=== PATIENT | female | born 1985 | race Caucasian/White ===

== ENCOUNTER 2023-07-27 20:02 | Emergency (ER) | payer MEDICAID, OTHER ==
[2023-07-27 20:09] VITALS: TEMP 98.2
[2023-07-27 20:48] LABS: Group A Strep NOT DETECTED (NEGATIVE)
[2023-07-27 21:01] LABS: INFLUENZA A NEGATIVE (NEGATIVE); INFLUENZA B NEGATIVE (NEGATIVE); RESPIRATORY SYNCTIAL VIRUS NEGATIVE (NEGATIVE); SARS-CoV-2 Xpert Express NEGATIVE (NEGATIVE)
[2023-07-27 21:41] LABS: Absolute Neutrophil Ct (ANC) 6.03 x10^3/uL (1.4-6.9); BASOPHIL % 0.1 % (0.0-0.4); Basophil (Absolute #) 0.01 x10^3/uL (0-0.4); Eosinophil % 1.9 % (0.00-5.0); Eosinophil (Absolute #) 0.15 x10^3/uL (0-0.5); Hematocrit 41.4 % (35-47); IMMATURE GRAN # 0.01 x10^3u/L (0.00-0.03); IMMATURE GRAN % 0.1 % (0.00-0.4); Lymphocyte (Absolute #) 1.24 x10^3/uL (1.0-4.6); Lymphocytes % 15.7 % (24.0-44.0); Mean Cell Volume 92.8 fL (78-100); Mean Corpuscular Hemoglobin 31.4 pg (26-32); Mean Corpuscular Hgb Concent. 33.8 g/dL (32-36); Mean Platelet Volume 10.9 fL (7.5-11.0); Monocyte (Absolute #) 0.48 x10^3/uL (0.0-1.3); Monocytes % 6.1 % (0.0-12.0); Neutrophil % 76.1 % (36.0-66.0); Platelet Count 214 x10^3/uL (150-450); Red Blood Count 4.46 x10^6/uL (4.1-5.4); Red Cell Distribution Width 11.9 % (11.5-14.0); White Blood Count 7.9 x10^3/uL (4.0-10.5)
[2023-07-27] MEDS ORDERED: Sodium Chloride 0.9% 1000 ML 1,000 ML ONE (21:46)
[2023-07-27] MEDS: Sodium Chloride 0.9% 1000 ML 1,000 ML IV STA (21:47)
[2023-07-27 21:55] LABS: ALBUMIN 4.1 g/dL (3.5-5.0); ANION GAP 11.1 MEQ/L (5-15); BILIRUBIN,TOTAL 0.6 mg/dL (0.2-1.3); Calcium 9.6 mg/dL (8.4-10.2); Creatinine 1 0.65 mg/dL (0.52-1.04); EST GLOMERULAR FILTRATION RATE 116.2 ML/MIN; Potassium 4.4 mmol/L (3.5-5.1); Total Protein 7.6 g/dL (6.3-8.2)
[2023-07-27 21:58] LABS: HCG SERUM TEST NEGATIVE (NEGATIVE)
[2023-07-27 22:06] VITALS: BP 124/78; PULSE 105; RESP 17; O2SAT 97
--- NOTE | 2023-07-27 22:49 | ERPHSYRPT ---
- History of Present Illness Time Seen by Provider: 07/27/23 20:05 Source: patient Exam Limitations: no limitations Patient Subjective Stated Complaint: fever, cough, sob, body aches, swollen lymph nodes in throat Triage Nursing Assessment: Pt ambulated into ER without diff, pt alert and oriented x4. Pt c/o fever, chills, sob, body aches, and swollen lymph nodes in throat since yesterday. Lungs clear, heart tones reg. Pt is afebrile at this time. Pt has a non-prod cough. Physician History: Patient is here with cough, cold, congestion. Has been going on since yesterday. Patient describes some systemic body aches. 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 She states that she did have recent contact with several flu patients. Patient is also type I diabetic. Has had some elevated blood sugars at home over the past 24 hours. Patient has no fever here. Patient is taking PO well. Same number of urinations and defecations. The patient has no signs of altered mental status, nuchal rigidity, signs of meningitis. The patient is up-to-date on all vaccinations. Patient did give herself a dose of insulin prior to arrival. Allergies/Adverse Reactions: cefaclor [From [facility]] Allergy (Mild, Verified 07/27/23 20:16) Hives penicillin G Allergy (Verified 07/27/23 20:16) Hives Home Medications: Diltiazem HCl [Cardizem] 120 mg PO DAILY 07/27/23 [History] Insulin Glargine,Hum.rec.anlog [Basaglar Kwikpen U-100] 40 units SQ BID 07/27/23 [History] Insulin Lispro [Admelog] 10 units SQ TIDWMEALS 07/27/23 [History] PANTOPRAZOLE 40 mg Tablet [Protonix 40MG Tablet] 1 tab PO DAILY 07/27/23 [History] Hx Tetanus, Diphtheria Vaccination/Date Given: Yes Hx Influenza Vaccination/Date Given: Yes Hx Pneumococcal Vaccination/Date Given: No Immunizations Up to Date: Yes Travel Risk - International Travel Have you traveled outside of the country in past 3 weeks: No - Emerging Infectious Disease Are you exhibiting symptoms associated with any current EIDs: Yes Symptoms: Cough: New Onset, Fever, Headaches/Body Aches/, Shortness of Breath - Past Medical History Pertinent Past Medical History: Yes Neurological History: No Pertinent History ENT History: No Pertinent History Cardiac History: No Pertinent History Respiratory History: No Pertinent History Endocrine Medical History: Diabetes Type I Musculoskeletal History: Fractures, Other GI Medical History: Gallbladder Disease History: No Pertinent History Psycho-Social History: Anxiety, Depression Female Reproductive Disorders: No Pertinent History Other Medical History: RECURRING CELLULITIS IN LEFT INDEX FINGER FOR PAST 6YRS, scleroderma - Past Surgical History Past Surgical History: Yes Neuro Surgical History: No Pertinent History Cardiac: No Pertinent History Respiratory: No Pertinent History Gastrointestinal: Appendectomy, Cholecystectomy Genitourinary: No Pertinent History Musculoskeletal: No Pertinent History Female Surgical History: Section Other Surgical History: LEAP PROCEDURE ON CERVIX. TONSILS ET ADENOIDS - Female History Hx Last Menstrual Period: 01/2023 Hx Now: No - Social History Smoking Status: Current every day smoker How long have you smoked: 19 yrs Exposure to second hand smoke: No Drug Use: none Patient Lives Alone: No - Nursing Vital Signs Nursing Vital Signs: Initial Vital Signs Temperature 98.2 F 07/27/23 20:06 Pulse Rate 126 H 07/27/23 20:06 Respiratory Rate 16 07/27/23 20:06 Blood Pressure 158/94 07/27/23 20:06 O2 Sat by Pulse Oximetry 98 07/27/23 20:06 Pain Scale Pain Intensity 3 - Physical Exam SpO2: 97 Comments: 07/27/23 23:00 Review of Systems Constitutional: Fever at home, body aches HENT: Cough, cold, congestion Respiratory: Negative for shortness of breath. Cardiovascular: Negative for chest pain. Gastrointestinal: Negative for abdominal pain. Genitourinary: Negative for dysuria. Musculoskeletal: Negative for back pain. Skin: Negative for rash. Neurological: Negative for headaches. Psychiatric/Behavioral: Negative for behavioral problems. All other systems reviewed and are negative. Physical Exam Vitals signs and nursing note reviewed. Constitutional: Appearance: Patient is well-developed. HENT: Head: Normocephalic and atraumatic. Eyes: Conjunctiva/sclera: Conjunctivae normal. Neck: Musculoskeletal: Normal range of motion. Trachea: No tracheal deviation. Cardiovascular: Rate and Rhythm: Tachycardia Pulmonary: Effort: Pulmonary effort is normal. No respiratory distress. Abdominal: Palpations: Abdomen is soft. Musculoskeletal: General: No deformity. Skin: General: Skin is warm and dry. Neurological/ Psychiatric: Mental Status: Mental status, behavior, interaction with environment is appropriate for patient's age and condition No trismus, able to fully extend neck, normal range of motion of neck without pain. Uvula is midline, no swelling of the mouth, noraml oropharynx. No exudate, no signs of meningitis, no floor of mouth swelling, no hot potato voice on exa m. No buccal swelling, no gum bleeding, no signs of tooth abscess/infection. Some minimal cervical lymphadenopathy. Less than 1 cm, mobile, minimally tender. - Course Nursing assessment & vital signs reviewed: Yes Ordered Tests: Active Orders 24 hr Category Date Time Status IV Insertion STAT Care 07/27/23 21:17 Completed POCT Glucose Check STAT Care 07/27/23 20:11 Completed CHEST 1 VIEW (PORTABLE) Stat Exams 07/27/23 21:17 Ordered AMYLASE Stat Lab 07/27/23 21:25 Completed BLOOD CULTURE Stat Lab 07/27/23 21:25 Received BLOOD CULTURE Stat Lab 07/27/23 21:30 Received CBC W DIFF Stat Lab 07/27/23 21:25 Completed CMP Stat Lab 07/27/23 21:25 Completed HCG QUALITATIVE, SERUM Stat Lab 07/27/23 21:25 Completed LIPASE Stat Lab 07/27/23 21:25 Completed Lactic Acid Stat Lab 07/27/23 21:40 Completed POCT GLUCOSE Stat Lab 07/27/23 21:13 Completed PROCALCITONIN Stat Lab 07/27/23 21:25 Completed TROPONIN Q4H Lab 07/27/23 21:25 Completed Medication Summary Discontinued Medications Generic Name Dose Route Start Last Admin Trade Name Grisel PRN Reason Stop Dose Admin Sodium Chloride 1,000 mls @ 999 mls/hr 07/27/23 21:17 07/27/23 22:48 Sodium Chloride 0.9% 1000 Ml IV 07/27/23 22:17 Infused .Q1H1M STA Infusion Sodium Chloride Confirm 07/27/23 21:46 Sodium Chloride 0.9% 1000 Ml Administered 07/27/23 21:47 Dose 1,000 mls @ ud .ROUTE .STK-MED ONE Lab/Rad Data: Laboratory Result Diagrams 07/27/23 21:25 07/27/23 21:25 Laboratory Results 07/27/23 07/27/23 07/27/23 Range/Units 21:40 21:25 21:25 WBC (4.0-10.5) x10^3/uL RBC (4.1-5.4) x10^6/uL Hgb (12.0-16.0) g/dL Hct (35-47) % MCV (78-100) fL MCH (26-32) pg MCHC (32-36) g/dL RDW (11.5-14.0) % Plt Count (150-450) x10^3/uL MPV (7.5-11.0) fL Gran % (36.0-66.0) % Immature Gran % (Auto) (0.00-0.4) % Nucleat RBC Rel Count (0.00-0.1) % Eos # (Auto) (0-0.5) x10^3/uL Immature Gran # (Auto) (0.00-0.03) x10^3u/L Absolute Lymphs (auto) (1.0-4.6) x10^3/uL Absolute Monos (auto) (0.0-1.3) x10^3/uL Absolute Nucleated RBC (0.00-0.01) x10^3u/L Lymphocytes % (24.0-44.0) % Monocytes % (0.0-12.0) % Eosinophils % (0.00-5.0) % Basophils % (0.0-0.4) % Absolute Granulocytes (1.4-6.9) x10^3/uL Basophils # (0-0.4) x10^3/uL Sodium (135-145) mmol/L Potassium (3.5-5.1) mmol/L Chloride (98-107) mmol/L Carbon Dioxide (22-30) mmol/L Anion Gap (5-15) MEQ/L BUN (7-17) mg/dL Creatinine (0.52-1.04) mg/dL Estimated GFR ML/MIN Glucose (74-106) mg/dL POC Glucometer (74 to 106) mg/dL Lactic Acid 1.7 (0.4-2.0) Calcium (8.4-10.2) mg/dL Total Bilirubin (0.2-1.3) mg/dL AST (14-36) U/L ALT (0-35) U/L Alkaline Phosphatase (38-126) U/L Troponin I (0.000-0.033) ng/mL Serum Total Protein (6.3-8.2) g/dL Albumin (3.5-5.0) g/dL Amylase (30-110) U/L Lipase (23-300) U/L Procalcitonin 0.303 H (0.030-0.080) ng/mL Serum HCG, Qual NEGATIVE (NEGATIVE) Influenza Type A Ag (NEGATIVE) Influenza Type B Ag (NEGATIVE) RSV (PCR) (NEGATIVE) SARS-CoV-2 (PCR) (NEGATIVE) Group A Strep Antibody (NEGATIVE) 07/27/23 07/27/23 07/27/23 Range/Units 21:25 21:25 21:25 WBC 7.9 (4.0-10.5) x10^3/uL RBC 4.46 (4.1-5.4) x10^6/uL Hgb 14.0 (12.0-16.0) g/dL Hct 41.4 (35-47) % MCV 92.8 (78-100) fL MCH 31.4 (26-32) pg MCHC 33.8 (32-36) g/dL RDW 11.9 (11.5-14.0) % Plt Count 214 (150-450) x10^3/uL MPV 10.9 (7.5-11.0) fL Gran % 76.1 H (36.0-66.0) % Immature Gran % (Auto) 0.1 (0.00-0.4) % Nucleat RBC Rel Count 0.0 (0.00-0.1) % Eos # (Auto) 0.15 (0-0.5) x10^3/uL Immature Gran # (Auto) 0.01 (0.00-0.03) x10^3u/L Absolute Lymphs (auto) 1.24 (1.0-4.6) x10^3/uL Absolute Monos (auto) 0.48 (0.0-1.3) x10^3/uL Absolute Nucleated RBC 0.00 (0.00-0.01) x10^3u/L Lymphocytes % 15.7 L (24.0-44.0) % Monocytes % 6.1 (0.0-12.0) % Eosinophils % 1.9 (0.00-5.0) % Basophils % 0.1 (0.0-0.4) % Absolute Granulocytes 6.03 (1.4-6.9) x10^3/uL Basophils # 0.01 (0-0.4) x10^3/uL Sodium 134 L (135-145) mmol/L Potassium 4.4 (3.5-5.1) mmol/L Chloride 101 (98-107) mmol/L Carbon Dioxide 25 (22-30) mmol/L Anion Gap 11.1 (5-15) MEQ/L BUN 13 (7-17) mg/dL Creatinine 0.65 (0.52-1.04) mg/dL Estimated GFR 116.2 ML/MIN Glucose 380 H (74-106) mg/dL POC Glucometer (74 to 106) mg/dL Lactic Acid (0.4-2.0) Calcium 9.6 (8.4-10.2) mg/dL Total Bilirubin 0.60 (0.2-1.3) mg/dL AST 20 (14-36) U/L ALT 22 (0-35) U/L Alkaline Phosphatase 81 (38-126) U/L Troponin I < 0.012 (0.000-0.033) ng/mL Serum Total Protein 7.6 (6.3-8.2) g/dL Albumin 4.1 (3.5-5.0) g/dL Amylase 52 (30-110) U/L Lipase 37 (23-300) U/L Procalcitonin (0.030-0.080) ng/mL Serum HCG, Qual (NEGATIVE) Influenza Type A Ag (NEGATIVE) Influenza Type B Ag (NEGATIVE) RSV (PCR) (NEGATIVE) SARS-CoV-2 (PCR) (NEGATIVE) Group A Strep Antibody (NEGATIVE) 07/27/23 07/27/23 Range/Units 21:13 20:20 WBC (4.0-10.5) x10^3/uL RBC (4.1-5.4) x10^6/uL Hgb (12.0-16.0) g/dL Hct (35-47) % MCV (78-100) fL MCH (26-32) pg MCHC (32-36) g/dL RDW (11.5-14.0) % Plt Count (150-450) x10^3/uL MPV (7.5-11.0) fL Gran % (36.0-66.0) % Immature Gran % (Auto) (0.00-0.4) % Nucleat RBC Rel Count (0.00-0.1) % Eos # (Auto) (0-0.5) x10^3/uL Immature Gran # (Auto) (0.00-0.03) x10^3u/L Absolute Lymphs (auto) (1.0-4.6) x10^3/uL Absolute Monos (auto) (0.0-1.3) x10^3/uL Absolute Nucleated RBC (0.00-0.01) x10^3u/L Lymphocytes % (24.0-44.0) % Monocytes % (0.0-12.0) % Eosinophils % (0.00-5.0) % Basophils % (0.0-0.4) % Absolute Granulocytes (1.4-6.9) x10^3/uL Basophils # (0-0.4) x10^3/uL Sodium (135-145) mmol/L Potassium (3.5-5.1) mmol/L Chloride (98-107) mmol/L Carbon Dioxide (22-30) mmol/L Anion Gap (5-15) MEQ/L BUN (7-17) mg/dL Creatinine (0.52-1.04) mg/dL Estimated GFR ML/MIN Glucose (74-106) mg/dL POC Glucometer 358 H (74 to 106) mg/dL Lactic Acid (0.4-2.0) Calcium (8.4-10.2) mg/dL Total Bilirubin (0.2-1.3) mg/dL AST (14-36) U/L ALT (0-35) U/L Alkaline Phosphatase (38-126) U/L Troponin I (0.000-0.033) ng/mL Serum Total Protein (6.3-8.2) g/dL Albumin (3.5-5.0) g/dL Amylase (30-110) U/L Lipase (23-300) U/L Procalcitonin (0.030-0.080) ng/mL Serum HCG, Qual (NEGATIVE) Influenza Type A Ag NEGATIVE (NEGATIVE) Influenza Type B Ag NEGATIVE (NEGATIVE) RSV (PCR) NEGATIVE (NEGATIVE) SARS-CoV-2 (PCR) NEGATIVE (NEGATIVE) Group A Strep Antibody NOT DETECTED (NEGATIVE) - Progress Progress: improved Progress Note: Differential diagnosis includes viral illness, DKA, pneumonia, hyperglycemia, COVID, flu, RSV, strep throat. We did place an IV and the patient, basic labs, fluids given her elevated [id number] blood sugar, chest x-ray, screen. 07/27/23 23:09 Patient's heart rate did improve with fluids. Patient's CMP does not show an obvious DKA. No anion gap, normal potassium. CBC shows no leukocytosis. Patient has no elevated lactic acid. Therefore much less likely to be a severe infection. Blood cultures drawn. Will allow these to grow out. Procalcitonin is also slightly elevated. This could be due to patient's hyperglycemia, overall stress state. Fluids given. Patient taking p.o. without difficulty. States that she will go home and take insulin. She did not want any insulin here. I feel this is reasonable given her overall picture. Patient's troponin is negative. Given that has been going on greater than 24 hours I do feel comfortable with a one-time negative troponin. Patient's COVID, flu, RSV all returned negative. Chest x-ray shows no obvious lung sounds are clear. Therefore will not place patient on any oral antibiotics at this point in time. At this point in time, plan to discharge patient home. She will be given the day off tomorrow and should use it to see her PCP for close reevaluation. She may return here at any point in time for new or changing symptoms. Close follow-up with PCP. I did discuss all this with the patient, she states her understanding and will follow-up. 07/27/23 23:09 Counseled pt/family regarding: lab results, diagnosis, need for follow-up, rad results - Departure Departure Disposition: Home Clinical Impression: Viral illness, Hyperglycemia due to diabetes mellitus Condition: Stable Critical Care Time: No Referrals: LEXI NOLAN [Primary Care Provider] - Follow up/PCP as directed Instructions: Fever, Adult (DC)
--- NOTE | 2023-07-28 08:49 | XRAY ---
Indication: Pneumonia. Comparison: None Portable chest hyperinflated and clear. Heart and mediastinal structures within normal limits. Bony thorax intact with incidental minimal dextroscoliosis and punctate foreign body projecting over T2-T3. Impression: Nonacute hyperinflated chest.
== END 2023-07-27 22:59 | disposition home or self-care (01) ==
LOC: ED 20:02
DX: B34.9 Viral infection, unspecified (principal); E10.65 Type 1 diabetes mellitus with hyperglycemia; R05.1 Acute cough; M79.10 Myalgia, unspecified site; Z79.899 Other long term (current) drug therapy; Z72.0 Tobacco use
CPT/HCPCS: 0241U; 36000; 36415; 71045; 80053; 82150; 82947; 83605; 83690; 84145; 84484; 84703; 85025; 87040; 87651; 96360; 99284

== ENCOUNTER 2025-01-04 18:50 | Emergency (ER) | payer MEDICAID ==
[2025-01-04 19:12] VITALS: TEMP 98.5
[2025-01-04 20:11] VITALS: RESP 18
--- NOTE | 2025-01-04 20:34 | ERPHSYRPT ---
- History of Present Illness Time Seen by Provider: 01/04/25 20:29 Source: patient Exam Limitations: no limitations Patient Subjective Stated Complaint: "I've been having pain in the mouth for the past 3 days and it's going into my ear. It hurts so bad. I can't eat or anything". Triage Nursing Assessment: Pt presents to ER with complaints of mouth pain for 3 days. Pt states pain radiates to right ear. Pt is alert and oriented x 3. Skin is pink, warm, and dry. Respirations are unlabored. Pt appears in pain and anxious. Noted some dental decay. No drainage noted. Tenderness upon exam. Pt states she has attempted to use OTC meds without relief. Physician History: Patient is a 39-year-old female current smoker history of diabetes type 1 anxiety and depression presents to our ED for evaluation of progressive sublingual lower jaw pain. Patient states that symptoms have got progressively worse over the past 3 months. No trauma no fever. Patient states that is very difficult to open her mouth but she is tolerating her oral secretions well. No change in her voice. Patient has multiple carious teeth. Symptoms are moderate in intensity. Pain worse with palpation to the sublingual and submental area. Patient otherwise feels well. No chest pain or shortness of breath. No nausea vomiting or diaphoresis. Patient voices no other complaints or concerns at this time. Portions of this note were created with voice recognition technology. There may be grammatical, spelling, punctuation or sound alike errors Timing/Duration: day(s) (3 days) Severity: moderate Modifying Factors: Improves With: nothing Associated Symptoms: denies symptoms Allergies/Adverse Reactions: cefaclor [From Ceclor] Allergy (Mild, Verified 01/04/25 19:08) Hives penicillin G Allergy (Verified 01/04/25 19:08) Hives Home Medications: Insulin Glargine,Hum.rec.anlog [Basaglar Kwikpen U-100] 40 units SQ BID 07/27/23 [History] Insulin Lispro [Admelog] 10 units SQ TIDWMEALS 07/27/23 [History] dilTIAZem HCL [Cardizem] 120 mg PO DAILY 07/27/23 [History] Hx Tetanus, Diphtheria Vaccination/Date Given: Yes Hx Influenza Vaccination/Date Given: Yes Hx Pneumococcal Vaccination/Date Given: No Immunizations Up to Date: Yes Travel Risk - International Travel Have you traveled outside of the country in past 3 weeks: No - Emerging Infectious Disease Are you exhibiting symptoms associated with any current EIDs: No Symptoms: Cough: New Onset, Fever, Headaches/Body Aches/, Shortness of Breath - Review of Systems All Other Systems: Reviewed and Negative - Past Medical History Pertinent Past Medical History: Yes Neurological History: No Pertinent History ENT History: No Pertinent History Cardiac History: No Pertinent History Respiratory History: No Pertinent History Endocrine Medical History: Diabetes Type I Musculoskeletal History: Fractures, Other GI Medical History: Gallbladder Disease History: No Pertinent History Psycho-Social History: Anxiety, Depression Female Reproductive Disorders: No Pertinent History Other Medical History: RECURRING CELLULITIS IN LEFT INDEX FINGER FOR PAST 6YRS, scleroderma - Past Surgical History Past Surgical History: Yes Neuro Surgical History: No Pertinent History Cardiac: No Pertinent History Respiratory: No Pertinent History Gastrointestinal: Appendectomy, Cholecystectomy Genitourinary: No Pertinent History Musculoskeletal: No Pertinent History Female Surgical History: Section Other Surgical History: LEAP PROCEDURE ON CERVIX - Female History Hx Last Menstrual Period: 12/13/2024 Hx Now: No - Social History Smoking Status: Current every day smoker How long have you smoked: 19 yrs Exposure to second hand smoke: No Drug Use: none - Social Determinants of Health Will the patient participate in the screening: Yes Do you worry about a steady place to live?: No Do you have any problems with any of the following?: No known problems In the past 12 months,have you had to go without utilities?: No Transportation Issues: No Has anyone in your support network made you feel unsafe?: No Have you or anyone in your house had to go w/o enough food: No - Nursing Vital Signs Nursing Vital Signs: Initial Vital Signs Temperature 98.5 F 01/04/25 19:09 Pulse Rate 108 H 01/04/25 19:09 Respiratory Rate 20 01/04/25 19:09 Blood Pressure 160/93 01/04/25 19:09 O2 Sat by Pulse Oximetry 99 01/04/25 19:09 Pain Scale Pain Intensity 7 - Physical Exam General Appearance: no apparent distress, alert Eye Exam: PERRL/EOMI, eyes nml inspection Ears, Nose, Throat Exam: normal ENT inspection, moist mucous membranes, other (Poor dentition. Inflamed gingiva/gingivitis. Palpation reproduces pain.) Neck Exam: normal inspection, full range of motion Respiratory Exam: normal breath sounds, lungs clear, No respiratory distress Cardiovascular Exam: regular rate/rhythm, normal heart sounds, normal peripheral pulses Gastrointestinal/Abdomen Exam: soft, normal bowel sounds, No tenderness, No mass Back Exam: normal inspection, normal range of motion, No CVA tenderness, No vertebral tenderness Extremity Exam: normal inspection, normal range of motion, pelvis stable Neurologic Exam: alert, oriented x 3, cooperative, normal mood/affect, sensation nml, No motor deficits Skin Exam: normal color, warm, dry, No rash Lymphatic Exam: No adenopathy SpO2 Interpretation: normal SpO2: 99 O2 Delivery: Room Air - Course Nursing assessment & vital signs reviewed: Yes Ordered Tests: Active Orders 24 hr Category Date Time Status IV Insertion STAT Care 01/04/25 20:24 Active NECK WITH CONTRAST [CT] Stat Exams 01/04/25 20:26 Completed CBC W DIFF Stat Lab 01/04/25 20:40 Completed CMP Stat Lab 01/04/25 20:40 Completed Medication Summary Generic Name Dose Route Start Last Admin Trade Name Freq PRN Reason Stop Dose Admin Sodium Chloride 1,000 mls @ 100 mls/hr 01/04/25 20:30 01/04/25 20:42 Sodium Chloride 0.9% 1000 Ml IV 02/03/25 20:29 100 mls/hr .Q10H MARY Administration Discontinued Medications Generic Name Dose Route Start Last Admin Trade Name Freq PRN Reason Stop Dose Admin Ketorolac Tromethamine Confirm 01/04/25 21:31 Ketorolac Tromethamine 30 Mg/Ml Inj Administered 01/04/25 21:32 Dose 30 mg .ROUTE .STK-MED ONE Ketorolac Tromethamine 30 mg 01/04/25 21:37 01/04/25 21:37 Ketorolac Tromethamine 30 Mg/Ml Inj IV 01/04/25 21:38 30 mg STAT STA Administration Morphine Sulfate 4 mg 01/04/25 20:24 01/04/25 20:41 Morphine Sulfate 4 Mg/Ml Injection IV 01/04/25 20:25 4 mg STAT ONE Administration Morphine Sulfate Confirm 01/04/25 20:39 Morphine Sulfate 4 Mg/Ml Injection Administered 01/04/25 20:40 Dose 4 mg .ROUTE .STK-MED ONE Ondansetron HCl 4 mg 01/04/25 20:24 01/04/25 20:44 Ondansetron Hcl 4 Mg/2 Ml Vial IV 01/04/25 20:25 4 mg STAT ONE Administration Ondansetron HCl Confirm 01/04/25 20:38 Ondansetron Hcl 4 Mg/2 Ml Vial Administered 01/04/25 20:39 Dose 4 mg .ROUTE .STK-MED ONE Lab/Rad Data: Laboratory Result Diagrams 01/04/25 20:40 01/04/25 20:40 Laboratory Results 01/04/25 01/04/25 Range/Units 20:40 20:40 WBC 12.8 H (3.98-10.04) x10^3/uL RBC 4.00 (3.93-5.22) x10^6/uL Hgb 13.3 (11.2-15.7) g/dL Hct 39.4 (34.1-44.9) % MCV 98.5 H (79.4-94.8) fL MCH 33.3 H (25.6-32.2) pg MCHC 33.8 (32.2-35.5) g/dL RDW 11.9 (11.7-14.4) % Plt Count 212 (182-369) x10^3/uL MPV 10.6 (9.4-12.3) fL Gran % 81.7 H (34.0-71.1) % Immature Gran % (Auto) 0.4 (0.001-0.429) % Nucleat RBC Rel Count 0.0 (0.00-0.2) % Eos # (Auto) 0.07 (0.04-0.36) x10^3/uL Immature Gran # (Auto) 0.05 H (0.001-0.031) x10^3u/L Absolute Lymphs (auto) 1.49 (1.18-3.74) x10^3/uL Absolute Monos (auto) 0.72 (0.24-0.86) x10^3/uL Absolute Nucleated RBC 0.00 (0.00-0.012) x10^3u/L Lymphocytes % 11.6 L (19.3-51.7) % Monocytes % 5.6 (4.7-12.5) % Eosinophils % 0.5 L (0.7-5.8) % Basophils % 0.2 (0.1-1.2) % Absolute Granulocytes 10.48 H (1.56-6.13) x10^3/uL Basophils # 0.02 (0.01-0.08) x10^3/uL Sodium 133 L (135-145) mmol/L Potassium 4.5 (3.5-5.1) mmol/L Chloride 102 (98-107) mmol/L Carbon Dioxide 24 (22-30) mmol/L Anion Gap 11.1 (5-15) MEQ/L BUN 11 (7-17) mg/dL Creatinine 0.56 (0.52-1.04) mg/dL Estimated GFR 119.0 ML/MIN Glucose 352 H (74-106) mg/dL Calcium 9.0 (8.4-10.2) mg/dL Total Bilirubin 0.50 (0.2-1.3) mg/dL AST 23 (14-36) U/L ALT 29 (0-35) U/L Alkaline Phosphatase 103 (38-126) U/L Serum Total Protein 7.1 (6.3-8.2) g/dL Albumin 4.2 (3.5-5.0) g/dL - Progress Progress: improved Progress Note: Patient is a 39-year-old female current smoker history of diabetes type 1 anxiety and depression presents to our ED for evaluation of progressive sublingual lower jaw pain. Physical exam reveals poor dentition gingivitis and sublingual tenderness. CT neck negative for Bala's angina. Laboratory workup reveals a leukocytosis and a hyperglycemia. IV fluids administered. Patient reassessed. Pain significantly improved. Patient is requesting discharge. Patient received an oral dose of clindamycin in our ED. A prescription for clindamycin and Toradol forwarded to patient's pharmacy. No indication for further workup at this time will discharge home. Patient agrees to follow-up with her primary care doctor within 48 hours for reevaluation. Portions of this note were created with voice recognition technology. There may be grammatical, spelling, punctuation or sound alike errors History obtained from patient. Differential diagnosis includes gingivitis, dental abscess, Bala's angina, ANUG Complexity of problem addressed is moderate acute complicated. No critical care time. Complexity of data reviewed and analyzed is moderate. Test ordered chest reviewed results analyzed and correlated clinically with history and physical exam. Risk of complication at risk of morbidity/mortality of patient management is moderate. A prescription for clindamycin and Toradol forwarded to patient's pharmacy. Vital stable. Time spent to discharge patient is approximately 15 minutes. Plan of care established for shared decision making. No social determinants of health present to impede follow-up. Portions of this note were created with voice recognition technology. There may be grammatical, spelling, punctuation or sound alike errors 01/04/25 23:50 01/04/25 23:52 Counseled pt/family regarding: lab results, diagnosis, need for follow-up, rad results - Departure Departure Disposition: Home Clinical Impression: Pain, dental, Carious teeth, Gingivitis Condition: Stable Critical Care Time: No Referrals: LEXI NOLAN [Primary Care Provider, [facility]] - Follow up/PCP as directed Additional Instructions: Discharge/Care Plan JAVI LAWSON was seen on 01/04/25 in the Emergency Room. The patient was counseled regarding Diagnosis,Lab results, Imaging studies, need for follow up and when to return to the Emergency Room. Prescriptions given: Discharge Note I have spoken with the patient and/or caregivers. I have explained the patient's condition, diagnosis and treatment plan based on the information available to me at this time. I have answered the patient's and/or caregiver's questions and addressed any concerns. The patient and/or caregivers have as good understanding of the patient's diagnosis, condition and treatment plan as can be expected at this point. The vital signs have been stable. The patient's condition is stable and appropriate for discharge from the emergency department. The patient will pursue further outpatient evaluation with the primary care physician or other designated or consulting physician as outlined in the discharge instructions. The patient and/or caregivers are agreeable to this plan of care and follow-up instructions have been explained in detail. The patient and/or caregivers have received these instruction. The patient/and or caregivers are aware that any significant change in condition or worsening of symptoms should prompt an immediate return to this or the closest emergency department or call 911. Prescriptions: Clindamycin HCl 150 mg [Cleocin 150 mg Capsule] 2 cap PO QID #56 cap Ketorolac Trometh 10 mg Tab [TORAdol 10 MG TABLET] 10 mg PO TID 5 Days #15 tablet
[2025-01-04] MEDS ORDERED: Zofran 4 MG/2 ML VIAL ONE (20:38)
[2025-01-04] MEDS ORDERED: MORPHINE SULFATE 4 MG INJ ONE (20:39)
[2025-01-04] MEDS: MORPHINE SULFATE 4 MG INJ IV ONE (20:41)
[2025-01-04 20:44] LABS: BASOPHIL % 0.2 % (0.1-1.2); Basophil (Absolute #) 0.02 x10^3/uL (0.01-0.08); Eosinophil (Absolute #) 0.07 x10^3/uL (0.04-0.36); Hematocrit 39.4 % (34.1-44.9); Hemoglobin 13.3 g/dL (11.2-15.7); IMMATURE GRAN # 0.05 x10^3u/L (0.001-0.031); IMMATURE GRAN % 0.4 % (0.001-0.429); Lymphocyte (Absolute #) 1.49 x10^3/uL (1.18-3.74); Mean Corpuscular Hemoglobin 33.3 pg (25.6-32.2); Mean Corpuscular Hgb Concent. 33.8 g/dL (32.2-35.5); Monocyte (Absolute #) 0.72 x10^3/uL (0.24-0.86); NUCLEATED RBC # 0.00 x10^3u/L (0.00-0.012); NUCLEATED RBC % 0.0 % (0.00-0.2); Platelet Count 212 x10^3/uL (182-369); Red Blood Count 4.00 x10^6/uL (3.93-5.22); White Blood Count 12.8 x10^3/uL (3.98-10.04)
[2025-01-04] MEDS: Zofran 4 MG/2 ML VIAL IV ONE (20:44)
[2025-01-04 20:58] LABS: Calcium 9.0 mg/dL (8.4-10.2); Carbon Dioxide 24.0 mmol/L (22-30); Creatinine 1 0.56 mg/dL (0.52-1.04); EST GLOMERULAR FILTRATION RATE 119.0 ML/MIN; Glucose 352.0 mg/dL (74-106); Potassium 4.5 mmol/L (3.5-5.1); SGOT/AST 23.0 U/L (14-36); SGPT/ALT 29.0 U/L (0-35); Total Protein 7.1 g/dL (6.3-8.2)
[2025-01-04] MEDS ORDERED: TORAdol 30 mg Injection ONE (21:31)
[2025-01-04] MEDS: TORAdol 30 mg Injection IV STA (21:37)
--- NOTE | 2025-01-04 22:52 | XRAY ---
CLINICAL HISTORY: pain, sublingual COMPARISON: None. TECHNIQUE: Computed tomography of the neck was performed with intravenous contrast. Contiguous axial images were obtained. Reformatted coronal and sagittal images were also reviewed. If intravenous contrast material had not been administered, the likelihood of detecting abnormalities relevant to the patient's condition would have been substantially decreased. The CT scan was performed according to ALARA (as low as reasonably achievable). FINDINGS: Included intracranial structures, orbits, and paranasal sinuses are grossly unremarkable. Nasopharynx, oropharynx, oral cavity, hypopharynx, and larynx are grossly unremarkable. Parotid, submandibular, and thyroid glands are grossly unremarkable. Bilateral neck vessels are patent and show normal course, calibre, and opacification. Scattered bilateral jugulodigastric lymph nodes are present; however, none are pathologically enlarged. The visualized included lung apices are grossly clear, and no acute osseous abnormality is detected. IMPRESSION: 1. Unremarkable study. Electronically Signed by: Charli Zee MD. (01/04/2025 22:51:32 EDT)
[2025-01-04 23:02] VITALS: BP 124/84; PULSE 94
[2025-01-04] MEDS: CLEOCIN 150 MG CAPSULE PO ONE (23:50)
[2025-01-04 23:52] VITALS: O2SAT 99
== END 2025-01-04 23:55 | disposition home or self-care (01) ==
LOC: ED 18:50
DX: K05.10 Chronic gingivitis, plaque induced (principal); K02.9 Dental caries, unspecified; K08.89 Other specified disorders of teeth and supporting structures; R68.84 Jaw pain; E10.9 Type 1 diabetes mellitus without complications; Z79.899 Other long term (current) drug therapy; Z72.0 Tobacco use